=== PATIENT | female | born 1965 | race Caucasian/White ===

== ENCOUNTER 2020-08-03 17:11 | Emergency (ER) | payer OTHER ==
[~2020-08-03] VITALS: Ht 157.5 cm; Wt 86.2 kg
[2020-08-03 17:16] VITALS: BP 129/74
[2020-08-03] MEDS ORDERED: KETOROLAC 30 MG/ML VIAL IM ONE (17:25)
[2020-08-03] MEDS ORDERED: ACET-8386 PO (18:37)
[2020-08-03 19:23] VITALS: BP 129/74
== END 2020-08-03 19:23 | disposition home or self-care (01) ==
LOC: MED 17:11
DX: S92.355A Nondisplaced fracture of fifth metatarsal bone, left foot, initial encounter for closed fracture (principal); W01.0XXA Fall on same level from slipping, tripping and stumbling without subsequent striking against object, initial encounter; Y93.89 Activity, other specified; Y92.89 Other specified places as the place of occurrence of the external cause; Y99.8 Other external cause status
CPT/HCPCS: 29505; 72100; 73562; 73590; 73610; 73630; 96372; 99284; J1885